=== PATIENT | male | born 1950 | race Caucasian/White ===

== ENCOUNTER 2018-09-05 23:25 | Emergency (ER) | payer OTHER, MEDICARE ==
[~2018-09-05 23:25] MED LIST: CLOPIDOGREL BISULFATE 300 MG TABLET ONE; TENECTEPLASE INJ 50 MG KIT IV ONE
--- NOTE | 2018-09-06 00:16 | EKG REPORT ---
SEVERITY:- BORDERLINE ECG - SINUS RHYTHM BORDERLINE INFERIOR Q WAVES : Confirmed by: Halle Elmore 06-Sep-2018 00:15:23
[2018-09-06 00:36] LABS: ABSOLUTE EOSINOPHILS # (AUTO) 0.2 10^3/uL (0.0-0.6); ABSOLUTE LYMPHOCYTES (AUTO) 2.2 10^3/uL (0.5-4.7); ABSOLUTE MONOCYTES (AUTO) 0.7 10^3/uL (0.1-1.4); ABSOLUTE NEUT (AUTO) 6.4 10^3/uL (1.7-8.2); BASOPHILS % (AUTO) 0.5 % (0-2); EOSINOPHILS % (AUTO) 2.4 % (0-6); HEMATOCRIT 46.9 % (37.9-51.0); HEMOGLOBIN 16.1 g/dL (13.5-17.0); LYMPHOCYTES % (AUTO) 23.4 % (13-45); MEAN CORPUSCULAR HEMOGLOBIN 31.3 pg (27.0-33.4); MEAN CORPUSCULAR HGB CONC 34.3 g/dL (32.0-36.0); MEAN CORPUSCULAR VOLUME 91 fl (80-97); PLATELET COUNT 347 10^3/uL (150-450); RED BLOOD COUNT 5.14 10^6/uL (4.35-5.55); RED CELL DISTRIBUTION WIDTH 13.2 % (11.5-14.0); SEGMENTED NEUTROPHILS % (AUTO) 66.7 % (42-78); TOTAL CELLS COUNTED % (AUTO) 100 %; WHITE BLOOD COUNT 9.5 10^3/uL (4.0-10.5)
[2018-09-06 00:39] LABS: ANION GAP 8 (5-19); BLOOD UREA NITROGEN 17 mg/dL (7-20); CALCIUM 10.3 mg/dL (8.4-10.2); CARBON DIOXIDE 30 mmol/L (22-30); CHLORIDE 103 mmol/L (98-107); GLUCOSE 132 mg/dL (75-110); POTASSIUM 4.3 mmol/L (3.6-5.0); SODIUM 140.6 mmol/L (137-145)
[2018-09-06] MEDS ORDERED: ASPIRIN 81 MG TABLET, CHEWABLE PO ONE (01:19)
[2018-09-06] MEDS ORDERED: ATORVASTATIN CALCIUM 80 MG TABLET PO ONE (01:19)
[2018-09-06] MEDS: NITROGLYCERIN 0.4 MG/TAB 25 TAB/BOTTLE SL PRN ×2 (01:27→03:13)
[2018-09-06] MEDS ORDERED: ENOXAPARIN SODIUM INJ 80 MG/0.8 ML DISP.SYRIN SUBCUT SCH ×2 (01:30→10:00)
[2018-09-06] MEDS ORDERED: ENOXAPARIN SODIUM INJ 80 MG/0.8 ML DISP.SYRIN SUBCUT ONE (01:45)
--- NOTE | 2018-09-06 01:45 | ER Document Report ---
ED General - General Chief Complaint: Chest Pain Stated Complaint: CHEST PAIN Time Seen by Provider: 09/06/18 00:21 Notes: Patient is a 68-year-old male without chronic medical problems presents complaining of chest pain, stabbing, intermittent in nature that has become progressively worse over the last 3 days. The patient reports that tonight the stabbing pain became so intense he felt like he could not lie down and go to sleep so he came to the emergency department for assessment. The patient describes his ongoing pain currently as a stabbing, aching pain in the left side of his chest. Does not radiate currently. Some associated diaphoresis, nausea and shortness of breath. Denies any history of similar symptoms in the past. He has not seen his primary care doctor regarding these concerns. Nothing is been noted to improve or worsen his symptoms. Denies any known history of coronary artery disease. Does not have a general physician. TRAVEL OUTSIDE OF THE [place] IN LAST 30 DAYS: No Past Medical History - General Information source: Patient - Social History Smoking Status: Never Smoker Frequency of alcohol use: None Drug Abuse: None Lives with: Alone Family History: Reviewed & Not Pertinent Patient has suicidal ideation: No Patient has homicidal ideation: No Renal/ Medical History: Denies: Hx Peritoneal Dialysis Review of Systems - Review of Systems Notes: Constitutional: Negative for fever. HENT: Negative for sore throat. Eyes: Negative for visual changes. Cardiovascular: Positive for chest pain. Respiratory: Positive for shortness of breath. Gastrointestinal: Negative for abdominal pain, vomiting or diarrhea. Genitourinary: Negative for dysuria. Musculoskeletal: Negative for back pain. Skin: Negative for rash. Neurological: Negative for headaches, weakness or numbness. 10 point ROS negative except as marked above and in HPI. Physical Exam - Vital signs Vitals: Temp Pulse Resp BP Pulse Ox 97.5 F 64 14 165/94 H 98 09/05/18 23:28 09/05/18 23:28 09/05/18 23:28 09/05/18 23:28 09/05/18 23:28 Interpretation: Hypertensive Notes: PHYSICAL EXAMINATION: GENERAL: Appears ill, somewhat diaphoretic HEAD: Atraumatic, normocephalic. EYES: Pupils equal round and reactive to light, extraocular movements intact, sclera anicteric, conjunctiva are normal. ENT: nares patent, oropharynx clear without exudates. Mild dry mucous membranes. NECK: Normal range of motion, supple without lymphadenopathy LUNGS: Breath sounds clear to auscultation bilaterally and equal. No wheezes rales or rhonchi. HEART: Regular rate and rhythm without murmurs ABDOMEN: Soft, nontender, normoactive bowel sounds. No guarding, no rebound. No masses appreciated. EXTREMITIES: Normal range of motion, no pitting or edema. No cyanosis. NEUROLOGICAL: No focal neurological deficits. Moves all extremities spo ntaneously and on command. PSYCH: Normal mood, normal affect. SKIN: Cool to the touch, diaphoretic, normal turgor, no rashes or lesions noted. Course - Re-evaluation Re-evalutation: 09/06/18 01:30 Patient presents with 3 days of sharp, stabbing chest pain worsened with breathing and lying back. Notes some shortness of breath associated with this discomfort. Not reproducible on palpation. At the time of my evaluation the rashel steinberg is ill in appearance, pale, somewhat diaphoretic and having variable rates coming down to the 50s and then going back up into the 70s and 80s on his heart rate. The patient reports that he apparently had concern 5-6 weeks ago of possible DVTs but ultrasounds were noted to be normal. The patient's EKG does not show any acute ST changes. I am concerned the patient could have an acute PE as the etiology of his elevated troponin particularly given that the way he characterizes his pain is very atypical for an acute KS and he describes symptoms much more worrisome for an acute PE including pleuritic pain and shortness of breath. Given the high degree of concern and an elevated troponin, I believe a CT of the chest is needed to definitively exclude this diagnosis. EKG does not show a pattern consistent with pericarditis. Bedside echocardiogram without evidence of a pericardial effusion or tamponade. Patient is in guarded condition. 09/06/18 02:25 Patient continues to look somewhat ill, diaphoretic, stating that his chest pain is getting worse. CT of the chest is noted to be normal without evidence of dissection or pulmonary embolus. The patient will undergo repeat EKG. Will consider reassess at regular intervals. He remains in guarded condition. 09/06/18 02:40 I discussed this case with Dr. Estrada who has accepted the patient although we have reviewed that the patient is having dynamic EKG changes. His third EKG shows progressive worsening elevations in 2, 3, aVF and he has now depressed in aVL. He does not meet full STEMI criteria but I am concerned that he is continuing to progress with an ischemic pattern. I have therefore called the stimuli in [address] [place] [id number], discussed the case with the ED physician utilization reviewer. They will also receive the EKGs via fax and contact me back. The patient will continue be reassessed at regular intervals. 09/06/18 02:46 Patient has had progression now to a full STEMI pattern in the inferior leads. A STEMI protocol has been initiated. The patient will receive TNKase. I have asked the patient all appropriate questions and he clears for receiving thrombolytics. The patient has been accepted through the STEMI protocol at [facility] by Dr. Gibbs. Patient remains in critical, guarded condition. 09/06/18 03:02 Air transport has arrived. Patient is cleared for transport. - Vital Signs Vital signs: Temp Pulse Resp BP Pulse Ox 97.5 F 64 9 L 122/65 98 09/05/18 23:28 09/05/18 23:28 09/06/18 02:01 09/06/18 02:01 09/06/18 01:01 - Laboratory Result Diagrams: 09/05/18 23:45 09/05/18 23:45 Laboratory results interpreted by me: 09/05/18 23:45 Glucose 132 H Calcium 10.3 H - Diagnostic Test Radiology reviewed: Image reviewed, Reports reviewed Radiology results interpreted by me: 09/06/18 02:58 Chest x-ray: No acute infiltrate or pneumothorax - EKG Interpretation by Me Additional EKG results interpreted by me: 09/06/18 02:59 Initial EKG: Rate 63, sinus rhythm, no ST elevations or depressions EKG2: Irregular rhythm, rate 70, no ST elevations or depressions EKG 3: Worrisome pattern for developing infarction, elevations in lead II, 3, aVF, depression in aVL, rate 56, QTC 448. Final EKG: Acute inferior STEMI with elevations in leads II, 3, aVF, depressions present in aVL, 2 and 3. Rate 64. Critical Care Note - Critical Care Note Total time excluding time spent on procedures (mins): 40 Comments: Critical care time spent obtaining history from patient or surrogate, discussions with consultants, development of treatment plan with patient or surrogate, evaluation of patient's response to treatment, examination of patient, ordering and performing treatments and interventions, ordering and review of laboratory studies, re-evaluation of patient's condition, ordering and review of radiographic studies and review of old charts Discharge - Discharge Clinical Impression: ST elevation myocardial infarction (STEMI) of inferior wall, Shortness of breath Chest pain Qualifiers: Chest pain type: unspecified Qualified Code(s): R07.9 - Chest pain, unspecified Condition: Critical Disposition: [facility]
--- NOTE | 2018-09-06 02:08 | RADIOLOGY REPORT (SQ) ---
CLINICAL HISTORY: eval pe. PT C/O SHARP STABBING CHEST PAIN COMPARISON: None. TECHNIQUE: CT CHEST ANGIOGRAPHY WITHOUT THEN WITH IV CONTRAST on 09/06/2018 1:43 AM AUDIT TECH. MIPS reconstructions were generated. This exam was performed according to our departmental dose-optimization program, which includes automated exposure control, adjustment of the mA and/or kV according to patient size and/or use of iterative reconstruction technique. MIP images were generated. FINDINGS: Thoracic aorta is normal in course and caliber without aneurysm or dissection. Pulmonary arteries are adequately opacified without acute or chronic filling defects. The heart is normal in size. There is no pericardial effusion. Intrathoracic lymph nodes are not enlarged. There is no pleural effusion, pleural thickening or pneumothorax. Central airways are patent. There is minimal right basilar atelectasis. There are no acute abnormalities within the limited images of the upper abdomen. There are multiple old left rib fractures inferiorly. There are postoperative changes of right rotator cuff repair. IMPRESSION: No aortic dissection or aneurysm. No pulmonary embolus. No pneumonia.
[2018-09-06] MEDS ORDERED: MORPHINE SULFATE 10 MG/ML INJ IV PRN (02:23)
[2018-09-06] MEDS ORDERED: NORMAL SALINE 1000 ML 1,000 ML IV ONE (02:29)
--- NOTE | 2018-09-06 02:32 | RADIOLOGY REPORT (SQ) ---
EXAM DESCRIPTION: XR CHEST 1 VIEW COMPLETED DATE/TME: 09/06/2018 00:21 CLINICAL HISTORY: 68 years Male, cp COMPARISON: None. NUMBER OF VIEWS/TECHNIQUE: 1/AP FINDINGS: Adequate lung volume, clear parenchyma, normal cardiac silhouette, and intact bony thorax. Metallic anchors of the right humeral head. IMPRESSION: No acute cardiopulmonary findings.
[2018-09-06] MEDS ORDERED: CLOPIDOGREL BISULFATE 300 MG TABLET PO ONE (03:20)
[2018-09-06] MEDS ORDERED: TENECTEPLASE INJ 50 MG KIT IV ONE (03:20)
[2018-09-06 03:56] VITALS: BP 139/79
--- NOTE | 2018-09-06 19:31 | EKG REPORT ---
SEVERITY:- ABNORMAL ECG - SINUS RHYTHM ST ELEVATION, PROBABLE INFERIOR INJURY NONSPECIFIC T ABNORMALITIES, ANT-LAT LEADS : Confirmed by: Halle Elmore 06-Sep-2018 19:30:35
--- NOTE | 2018-09-06 19:31 | EKG REPORT ---
SEVERITY:- ABNORMAL ECG - SINUS RHYTHM INFERIOR INFARCT, ACUTE : Confirmed by: Halle Elmore 06-Sep-2018 19:30:25
--- NOTE | 2018-09-06 19:31 | EKG REPORT ---
SEVERITY:- ABNORMAL ECG - SINUS RHYTHM BORDERLINE INFERIOR Q WAVES NONSPECIFIC REPOL ABNORMALITY, DIFFUSE LEADS ST ELEVATION, INFERIOR LEADS, CONSIDER ACUTE INFERIOR MO : Confirmed by: Halle Elmore 06-Sep-2018 19:31:07
--- NOTE | 2018-09-06 19:32 | EKG REPORT ---
SEVERITY:- ABNORMAL ECG - SINUS RHYTHM ATRIAL PREMATURE COMPLEX ABNORMAL T, CONSIDER ISCHEMIA, INFERIOR WALL : Confirmed by: aHlle Elmore 06-Sep-2018 19:31:58
== END 2018-09-06 03:30 | disposition short-term general hospital (02) ==
LOC: ER 23:25
DX: I21.19 ST elevation (STEMI) myocardial infarction involving other coronary artery of inferior wall (principal); R07.9 Chest pain, unspecified; R06.02 Shortness of breath
CPT/HCPCS: 93005 ×2; 99291; 96372; 96361; 96375; 96365; 36415; 85025; 80048; 84484; 83880; 71045; 71275; 93010 ×2; J3101; J3490 ×2; J2270; J7030; J1650